=== PATIENT | female | born 1965 | race Caucasian/White ===

== ENCOUNTER 2016-04-30 06:46 | Day surgery (SDC) | payer MEDICAID ==
[~2016-04-30 06:46] MED LIST: RINGERS SOLUTION,LACTATED 1,000 ML IV PRN
--- OUTSIDE RECORDS SUMMARY | 2016-04-30 07:22 | XMS REPORT | Continuity of Care Document ---
:1965 Author Organization [facility] ([facility]) Address [place] [address] Phone [phone] Care Team Providers Name Role Phone Jarred Guardado Primary Care Provider [phone] Source Comments This disclosure is being made pursuant to the Care Everywhere program, applicable federal and state laws, and may not contain all informaitonavailable regarding this patient.[facility] ([facility]) Active Allergies and Adverse Reactions Allergen Noted Date Severity Reactions Comments Cephalexin 10/10/2009 OTHER Erythromycin 10/10/2009 OTHER Current Medications Prescription Sig. Disp. Refills Start Date End Date Status TRAMADOL HCL (TRAMADOL PO) Take by Active mouth. cyclobenzaprine (FLEXERIL) Take 10 mg by Active 10 mg tablet mouth 3 times daily as needed. clonazepam (KLONOPIN) 0.5 mg Take 0.5 mg by Active disintegrating tablet mouth 3 times daily. MEDROXYPROGESTERONE ACET inject Active (DEPO-PROVERA IM) intramuscularl y. CALCIUM CARBONATE/VITAMIN D3 Take by Active (CALCIUM + D PO) mouth. ibuprofen (MOTRIN) 200 mg Take 200 mg by Active tablet mouth every 6 hours as needed. traMADol (ULTRAM) 50 mg Take 1 Tab by 100 Tab 0 10/10/2009 Active tablet mouth every 6 hours. Indications: Pain Active Problems Not on file Social History Tobacco Use Types Packs/Day Years Used Date Never Assessed Last Filed Vital Signs Vital Sign Reading Time Taken Blood Pressure 121/68 10/10/2009 10:51 AM CDT Pulse 115 10/10/2009 10:51 AM CDT Temperature 36.5 C (97.7 F) 10/10/2009 10:51 AM CDT Respiratory Rate 16 09/12/2009 11:11 AM CDT Height 1.626 m (5' 4") 10/10/2009 10:51 AM CDT Weight 67.132 kg (148 lb) 10/10/2009 10:51 AM CDT Body Mass Index 25.39 10/10/2009 10:51 AM CDT Oxygen Saturation 100% 09/12/2009 11:11 AM CDT Plan of Care Health Maintenance Due Date Last Done Comments HCV Screening 1965 Hepatitis B Vaccine (1 of 3 - Primary Series) 1965 Tdap Vaccine 1974 Lipid Disorder Screening 1981 MMR Vaccine 1981 Td Vaccine 1981 Cervical Cancer Screening 1993 Mammogram 2003 12/01/1997 Colonoscopy 03/01/2013 Influenza Vaccine: Seasonal (#1) 09/10/2015 Results from Last 3 Months Not on file
[2016-04-30] MEDS ORDERED: RINGERS SOLUTION,LACTATED 1,000 ML IV ONE (07:49)
[2016-04-30 09:39] VITALS: BP 122/61
--- NOTE | 2016-04-30 17:39 | OR ---
Operative Report - Dictated Report Narrative: OPERATIVE REPORT DATE OF OPERATION: 04/30/2016 PREOPERATIVE DIAGNOSIS: No recent dedicated colon studies. Family history of colon cancer. POSTOPERATIVE DIAGNOSIS: Normal colonoscopy OPERATION: Colonoscopy SURGEON: Jayjay Vanegas MD ANESTHESIA: MAC Darrin Hebert CRNA INDICATIONS FOR PROCEDURE: The patient is a 51-year-old female referred by Dr. Anu Mckeon. The patient's grandmother had colon cancer at age 80. The patient had a colonoscopy in 2006 for irritable bowel syndrome which was reportedly normal. FINDINGS: Slightly capacious colon otherwise normal exam to the cecum NARRATIVE OF PROCEDURE: The patient was identified in the holding area, and prior to the administration of anesthetic, a multidisciplinary timeout was observed. With the patient in the left lateral position and after the administration of intravenous sedation, the perineum was inspected. There was no evidence of pilonidal disease or skin breakdown. The external appearance of the anus was normal. Sphincter tone was good. The flexible fiberoptic colonoscope was inserted into the rectum which was insufflated with air. The rectal mucosa and submucosal vascular pattern appeared normal, the prep was seen to be complete. The scope was advanced through the sigmoid colon, up the descending colon, and around the splenic flexure where the triangular haustral architecture of the transverse colon was seen. The scope was advanced across the transverse colon, around the hepatic flexure to the cecum, where the confluence of tenia and the ileocecal valve were identified. The mucosa at this level appeared normal. The scope was then slowly withdrawn in a circular fashion so that all aspects of colonic mucosa were inspected. The colon was somewhat capacious in character but relatively normal in course. The haustral architecture appeared well preserved throughout with no evidence of external compression. The mucosa and submucosal vascular pattern appeared normal, specifically there was no gross evidence to suggest colitis or inflammatory bowel disease and no AV malformations were seen. No diverticulosis was demonstrated. No polyps were encountered. The scope was gradually withdrawn to the level of the rectum. As much insufflated air as possible was removed. The scope was withdrawn from the patient and the procedure terminated. The patient tolerated the anesthetic and procedure well without complication and was transferred back to the ambulatory surgery area awake and in stable condition. The patient remained stable throughout a period of postoperative observation. She denied abdominal discomfort, was able to tolerate by mouth intake, and was up without assistance. I shared the operative findings with the patient and she was given copies of the photographs which appear in the medical record. She was discharged home with instructions not to engage in hazardous activity today , but may resume normal activity tomorrow, and advance diet as tolerated. She is to continue those medications as listed in the history and physical exam. RECOMMENDATION: Colon surveillance in 10 years depending upon findings and symptoms Reviewed and electronically signed
== END 2016-04-30 06:47 | disposition home or self-care (01) ==
LOC: AMB 06:46
PROVIDERS: ATTEND Surgery
PROC: 0DJD8ZZ Inspection of Lower Intestinal Tract, Via Natural or Artificial Opening Endoscopic (ICD-10-PCS; principal; 2016-04-30 08:10)
DX: Z12.11 Encounter for screening for malignant neoplasm of colon (principal); J45.909 Unspecified asthma, uncomplicated; F32.9 Major depressive disorder, single episode, unspecified; Z87.891 Personal history of nicotine dependence; Z80.0 Family history of malignant neoplasm of digestive organs

== ENCOUNTER 2016-06-03 10:50 | Emergency (ER) | payer MEDICAID ==
[2016-06-03] MEDS ORDERED: NORMAL SALINE 1,000 ML IV ONE (11:15)
[2016-06-03] MEDS ORDERED: LORazepam 2 MG/ML DISP.SYRIN IV ONE (11:16)
[2016-06-03] MEDS ORDERED: diphenhydrAMINE HCL 50 MG/ML VIAL IV ONE (11:18)
--- OUTSIDE RECORDS SUMMARY | 2016-06-03 11:22 | XMS REPORT | Continuity of Care Document ---
:1965 Author Organization [facility] ([facility]) Address [place] [address] Phone [phone] Care Team Providers Name Role Phone Jarred Guardado Primary Care Provider [phone] Source Comments This disclosure is being made pursuant to the Care Everywhere program, applicable federal and state laws, and may not contain all informaitonavailable regarding this patient.[facility] ([facility]) Active Allergies and Adverse Reactions Allergen [...]
[2016-06-03] MEDS ORDERED: LORazepam 2 MG/ML DISP.SYRIN ONE (11:31)
[2016-06-03 11:51] LABS: ALT 32 U/L (19-67); AST 25 U/L (0-48); Albumin * 4.1 gm/dl (3.4-5.0); Alkaline Phosphatase * 126 U/L (50-170); BUN/Creatinine Ratio 16.3 (9.0-21.6); Bilirubin, Total 0.3 mg/dL (0.0-1.1); Blood Urea Nitrogen 13 mg/dL (3-23); CK Total * 176 U/L (0-259); Ca. Corrected For Albumin 8.3 mg/dL (8.4-10.2); Calcium * 8.7 mg/dL (7.9-10.9); Carbon Dioxide 26.9 mmol/L (24-32.6); Chloride 102 mmol/L (97-106); Glucose * 145 mg/dL (70-110); Potassium 3.9 mmol/L (3.4-4.6); Salicylate 4.2 mg/dL (2.8-20.0); Sodium 139 mmol/L (132-142); Total Protein 7.1 gm/dL (6.2-8.2); Troponin I Less than 0.017 ng/ml (0.00-0.10)
[2016-06-03 12:02] LABS: Hematocrit 38.4 % (37.0-47.0); Hemoglobin 12.8 gm/dL (12.5-16.0); Mean Cell Volume 90.1 fl (78-100); Mean Corpuscular Hgb Conc 33.3 g/dl (32-36); Mean Platelet Volume 9.6 fl (6.0-9.5); Neutrophil # 2.7 K/mm3 (1.3-6.0); Neutrophil % 38.9 % (42-75.0); Platelet Count 387 K/mm3 (150-450); Red Blood Count 4.26 M/mm3 (4.2-5.4); Red Cell Distribution Width 13.3 % (11.5-14.0)
[2016-06-03 12:35] LABS: Urine Bilirubin Negative (NEGATIVE); Urine Blood Negative /ul (NEGATIVE); Urine Ketone Negative (NEGATIVE); Urine Nitrite Negative (NEGATIVE); Urine Protein Negative (NEGATIVE); Urine Urobilinogen Normal (NORMAL)
[2016-06-03 12:53] LABS: Urine Appearance Clear; Urine Bacteria None Seen; Urine Color Yellow; Urine RBC None Seen /hpf (0-5); Urine WBC None Seen /hpf (0-5)
[2016-06-03 13:02] LABS: Cocaine Ur Negative (NEGATIVE); Urine Barbiturate Negative (NEGATIVE); Urine Benzodiazepines Negative (NEGATIVE); Urine Opiates Negative (NEGATIVE); Urine PCP Negative (NEGATIVE)
[2016-06-03 13:04] LABS: Urine THC Positive (NEGATIVE)
--- NOTE | 2016-06-03 14:53 | ERNOTE ---
Medical Problem HPI - Narrative Date of Service: 06/03/16 - General Chief Complaint: General Assessment Time Seen by Provider: 06/03/16 11:11 Source: patient Exam Limitations: no limitations - Immun/Allergies/Home Medications Immunizations: IMMUNIZATION HX Immunizations Up to Date Yes Immunizations Comment shingles History of Influenza Vaccine Yes Hx Pneumococcal Vaccination No Allergies/Adverse Reactions: Allergies azithromycin Adverse Reaction (Intermediate, Verified 06/03/16 10:59) Other not true allergy, patient states low tolerance cephalexin monohydrate [From Keflex] Adverse Reaction (Intermediate, Verified 10:59) Other yeast infection erythromycin base Adverse Reaction (Intermediate, Verified 06/03/16 10:59) Other upset stomach, nausea gabapentin Adverse Reaction (Intermediate, Verified 06/03/16 10:59) Other stomach cramps naproxen Adverse Reaction (Intermediate, Verified 06/03/16 10:59) Other upset stomach Home Medications: HOME MEDICATIONS clonazePAM [Klonopin] 0.5 mg PO HS 07/20/15 [Last Taken Unknown] Diflunisal 500 mg PO BID 04/14/16 [Last Taken Unknown] Omeprazole 20 mg PO DAILY 04/14/16 [Last Taken Unknown] traMADol HCL [Ultram] 100 mg PO QID PRN 04/14/16 [Last Taken Unknown] Desvenlafaxine Succinate [Pristiq] 50 mg PO DAILY 06/03/16 [Last Taken Unknown] Nortriptyline HCl [Pamelor] 25 mg PO 06/03/16 [Last Taken Unknown] Proventil 5 MG/ML Solution 06/03/16 [Last Taken Unknown] Sulfamethoxazole/Trimethoprim [Bactrim Ds] 1 tab PO BID 06/03/16 [Last Taken Unknown] traMADol HCL [Ultram] 100 mg PO QID PRN 06/03/16 [Last Taken Unknown] - History of Present History Narrative: patient presents to the ED for shaking. 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 She relates she started shaking all over and felt tremulous. She relates she has never had this before. Nothing make sit better or worse. She relates a chronic RIVERA, but thi sis no different from prior. She also relates dizziness that is long-standing. No other acute Sx. No CP or SOB. No fever or vomiting. No acute focal N/T/W. She just had her nortript. increased last week at an office visit. She initially denied drug but later related she had smoked some marijuana before this began. She denies any other Sx. She appears to be voluntarily shaking all her extremities at this time. No seizure activity. Timing: constant Modifying Factors - (Improves): Present: other - nothing Modifying Factors - (Worsens): Present: other - nothing Review of Systems - Review of Systems Constitutional: Absent: fever EYE: Absent: vision changes ENT: Present: See HPI Respiratory: Absent: shortness of breath Cardiology: Absent: chest pain Gastrointestinal/Abdominal: Absent: abdominal pain Genitourinary: Absent: dysuria Neurological: Absent: weakness All Other Systems: All systems neg except as marked - Patient's Past Medical History Patient History - Medical: GERD, Headache, Osteoarthritis, Other Patient History - Cardiac/Respiratory: Asthma Patient History - Cancer: No Hx of Cancer Patient History - Surgical Procedures: Appendectomy, Colonoscopy, EGD, Tubal Ligation, Other Patient History - Other: None LMP (females 10-50): Menopausal - Family History Sister Family History - Medical: Migraines Family History - Cardiac/Respiratory: Asthma Family History - Cancer: No pertinent family hx Father Family History - Medical: Diabetes Type 2, Rheumatoid Arthritis Family History - Cardiac/Respiratory: No pertinent hx Family History - Cancer: No pertinent family hx Mother Family History - Medical: Anemia, Alzheimer's Disease, Osteoporosis Family History - Cardiac/Respiratory: Coronary Heart Disease, Hypertension, Hyperlipidemia, Other Family History - Cancer: Other - Social History Living Situations: home Abuse History: No History of abuse Psych History: Hx of Depression Alcohol Use: none Drug Use: other - Immunizations Immunizations Up to Date: Yes Hx Pneumococcal Vaccination: No History of Influenza Vaccine: Yes Physical Exam - Physical Exam General Appearance: Present: alert, other - Shaking extremities bilaterally. This appears to reduce when she voluntarily follows commands using her extremities. Eye Exam: Normal inspection: bilateral, PERRL: bilateral Ears, Nose, Throat: Present: normal ENT inspection Neck: Present: normal inspection Respiratory: Present: no respiratory distress, normal breath sounds, lungs clear Cardiovascular/Chest: Present: regular rate, rhythm, normal peripheral pulses Gastrointestinal/Abdominal: Present: normal bowel sounds, nontender, nondistended. Absent: tenderness Extremity Exam: Present: normal inspection Neurological Exam: Present: alert, oriented, normal mood/affect, no motor/ sensory deficits, other - NIH-0 Skin Exam: Absent: skin rash ED Progress - Results and Orders Patient's Lab Results:: I have reviewed the patient's lab results. - Vital Signs Patient's Vital Signs:: I have reviewed the patient's vital signs. Vital Signs: Vital Signs 06/03/16 06/03/16 06/03/16 10:53 11:05 11:34 Temperature 37.4 C Pulse Rate 119 H 117 H 121 H Respiratory 24 H 21 H 25 H Rate Blood Pressure 162/78 126/82 O2 Sat by Pulse 97 97 96 Oximetry 06/03/16 06/03/16 06/03/16 11:51 12:05 12:25 Temperature Pulse Rate 100 89 91 Respiratory 19 17 Rate Blood Pressure 115/58 114/7 122/59 O2 Sat by Pulse 95 97 97 Oximetry 06/03/16 06/03/16 06/03/16 12:40 12:50 13:05 Temperature Pulse Rate 89 83 83 Respiratory 22 H 15 15 Rate Blood Pressure 109/53 109/51 107/51 O2 Sat by Pulse 99 100 99 Oximetry 06/03/16 06/03/16 06/03/16 13:21 13:36 13:51 Temperature Pulse Rate 78 80 76 Respiratory 15 15 16 Rate Blood Pressure 109/61 101/65 110/56 O2 Sat by Pulse 99 98 99 Oximetry - EKG EKG read: Interp. by me EKG Comments: Sinus tach. rate 119. Non-specific ST/T wave changes, no clear STEMI - CT/Ultrasound CT/Ultrasound Narrative: CT head report reviewed. Negative. - Progress/Reassessment Chief Complaint: General Assessment Progress Note-Subjective: 06/03/16 14:49 All Sx resolved after ativan. She was resting comfortably. Nothing would suggest seizure. I doubt Serotonin syndrome at this tiome. Her tachycardia resolved and all Sx resolved. I offered her admission but she declines this and wishes to go home. She understands risks and benefits. Lactate elevated likely from the muscle shaking which has resolved. No other clear etiology. No other clear acute life threats noted. She declines hospital observation. Departure - Departure Clinical Impression: Shaking Disposition: Home self-care Condition: Stable Additional Instructions: Rest. Fluids. Follow-up with your doctor tomorrow by phone with a condition report and to schedule an appointment. Return if you change your mind about being admitted for observation, develop return of symptoms or if your condition worsens or changes in any way. Referrals: John Hernandez MD [Primary Care Provider] -
[2016-06-03 15:34] VITALS: BP 109/55
== END 2016-06-03 15:15 | disposition home or self-care (01) ==
LOC: ER 10:50
DX: R25.1 Tremor, unspecified (principal)
CPT/HCPCS: 36415; 70450; 80053; 80307; 81001; 82550; 83605; 84484; 85025; 93005; 96374; 99284; G0480; G0481

== ENCOUNTER 2016-07-25 12:03 | Emergency (ER) | payer MEDICAID ==
[2016-07-25 12:13] VITALS: BP 136/75
[2016-07-25] MEDS ORDERED: diphenhydrAMINE HCL 50 MG/ML VIAL IM ONE (12:24)
[2016-07-25] MEDS ORDERED: METHYLPREDNISOLONE ACETATE 80 MG/ML VIAL IM ONE (12:24)
--- NOTE | 2016-07-25 12:31 | ERNOTE ---
Integumentary HPI - Narrative Date of Service: 07/25/16 - General Time Seen by Provider: 07/25/16 12:14 Source: patient Exam Limitations: no limitations - Immun/Allergies/Home Medications Immunizations: IMMUNIZATION HX Immunizations Up to Date Yes History of Influenza Vaccine Yes Hx Pneumococcal Vaccination No Allergies/Adverse Reactions: Allergies Allergy/AdvReac Type Severity Reaction Status Date / Time azithromycin AdvReac Intermediate Other Verified 07/25/16 12:13 cephalexin monohydrate AdvReac Intermediate Other Verified 07/25/16 12:13 [From Keflex] erythromycin base AdvReac Intermediate Other Verified 07/25/16 12:13 gabapentin AdvReac Intermediate Other Verified 07/25/16 12:13 naproxen AdvReac Intermediate Other Verified 07/25/16 12:13 Home Medications: HOME MEDICATIONS clonazePAM [Klonopin] 0.5 mg PO HS 07/20/15 [Last Taken Unknown] Omeprazole 20 mg PO DAILY 04/14/16 [Last Taken Unknown] Desvenlafaxine Succinate [Pristiq] 50 mg PO DAILY 06/03/16 [Last Taken Unknown] Proventil 5 MG/ML Solution 06/03/16 [Last Taken Unknown] Tegretol 07/16/16 [Last Taken Unknown] predniSONE [Prednisone] 3 tab PO DAILY #9 tab 07/25/16 [Last Taken Unknown] - History of Present Illness Narrative: Pt. comes in with c/o rash for 24 hours after she was playing with her grandchildren in the grass two days ago. Pt. states that she has been taking benadryl without relief. Pt. states that she also started two new medications a week ago. Pt. denies any alleviating factors but states that it worsened when she went outside in the sun yesterday. Pt. denies any SOB or CP. Review of Systems - Review of Systems Constitutional: Present: no symptoms reported. Absent: recent illness, fever, chills, weakness, fatigue, malaise EYE: Present: no symptoms reported ENT: Present: no symptoms reported. Absent: throat swelling Respiratory: Present: no symptoms reported. Absent: shortness of breath, cough , wheezing Cardiology: Present: no symptoms reported. Absent: chest pain, palpitations, edema Gastrointestinal/Abdominal: Present: no symptoms reported Genitourinary: Present: no symptoms reported Musculoskeletal: Present: no symptoms reported. Absent: back pain, joint pain Skin: Present: rash. Absent: dryness, change in color, change in hair/nails Neurological: Present: no symptoms reported. Absent: headache, dizziness/light- headedness, numbness, tingling All Other Systems: All systems neg except as marked - Patient's Past Medical History Patient History - Medical: GERD, Headache, Osteoarthritis Patient History - Cardiac/Respiratory: Asthma Patient History - Cancer: No Hx of Cancer Patient History - Surgical Procedures: Appendectomy, Colonoscopy, EGD, Tubal Ligation, Other Patient History - Other: None LMP (females 10-50): Menopausal - Family History Sister Family History - Medical: Migraines Family History - Cardiac/Respiratory: Asthma Family History - Cancer: No pertinent family hx Father Family History - Medical: Diabetes Type 2, Rheumatoid Arthritis Family History - Cardiac/Respiratory: No pertinent hx Family History - Cancer: No pertinent family hx Mother Family History - Medical: Anemia, Alzheimer's Disease, Osteoporosis Family History - Cardiac/Respiratory: Coronary Heart Disease, Hypertension, Hyperlipidemia, Other Family History - Cancer: Other - Social History Living Situations: significant other Abuse History: No History of abuse Psych History: Hx of Depression Smoking Status: Former smoker Alcohol Use: none Drug Use: other - Immunizations Immunizations Up to Date: Yes Hx Pneumococcal Vaccination: No History of Influenza Vaccine: Yes Physical Exam - Physical Exam General Appearance: Present: wd/wn, alert, no apparent distress Eye Exam: Normal inspection: bilateral, PERRL: bilateral, EOMI: bilateral Ears, Nose, Throat: Present: normal ENT inspection, normal pharynx Respiratory: Present: no respiratory distress, normal breath sounds, no accessory muscle use, chest nontender, lungs clear Cardiovascular/Chest: Present: regular rate, rhythm, no murmur, normal peripheral pulses Neurological Exam: Present: alert, oriented, normal mood/affect, no motor/ sensory deficits Skin Exam: Present: skin rash - diffuse maculopapular rash ED Progress - Vital Signs Patient's Vital Signs:: I have reviewed the patient's vital signs. Vital Signs: Vital Signs 07/25/16 12:08 Temperature 37.0 C Pulse Rate 100 Respiratory 16 Rate Blood Pressure 136/75 O2 Sat by Pulse 98 Oximetry - Progress/Reassessment Chief Complaint: Rash Progress:: Improved Departure Clinical Impression: Allergic dermatitis - Departure Disposition: Home self-care Condition: Good Instructions: Pruritus Additional Instructions: Please follow up with primary provider as needed. Please take Benadryl 25 mg every 6 hours until rash is resolved. Referrals: John Hernandez MD [Primary Care Provider] - Prescriptions: predniSONE [Prednisone] 3 tab PO DAILY #9 tab
[2016-07-25] MEDS ORDERED: METHYLPREDNISOLONE ACETATE 80 MG/ML VIAL ONE (12:32)
[2016-07-25] MEDS ORDERED: diphenhydrAMINE HCL 50 MG/ML VIAL ONE (12:32)
--- OUTSIDE RECORDS SUMMARY | 2016-07-25 13:08 | XMS REPORT | Continuity of Care Document ---
:1965 Author Organization [facility] ([facility]) Address [address] [place] [address] Phone [phone] Care Team Providers Name Role Phone Jarred Guardado Primary Care Provider [phone] Source Comments This disclosure is being made pursuant to the Care Everywhere program, applicable federal and state laws, and may not contain all informaitonavailable regarding this patient.[facility] ([facility]) Active Allergies and Adverse Reactions Allergen [...]
== END 2016-07-25 12:53 | disposition home or self-care (01) ==
LOC: ER 12:03
DX: L23.9 Allergic contact dermatitis, unspecified cause (principal)

== ENCOUNTER 2016-10-09 06:43 | Day surgery (SDC) | payer MEDICAID ==
[~2016-10-09 06:43] MED LIST changes: +RINGER'S SOLUTION,LACTATED 1,000 ML IV PRN; -RINGERS SOLUTION,LACTATED 1,000 ML IV PRN; +ceFAZolin SODIUM 1 GM VIAL IV PRN
[2016-10-09] MEDS ORDERED: RINGER'S SOLUTION,LACTATED 1,000 ML IV ONE (07:19)
--- NOTE | 2016-10-09 07:48 | PN ---
Progess Note - Interim Narrative: 10/09/16 07:40 Patient evaluated this am. She has had several months of worsening R hand pain and numbness. 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 On exam, she has diminished but intact sensation to light touch in the ulnar nerve distribution. She has a positive Tinel's over the elbow and a positive Phalen's with prolonged elbow flexion. An EMG/NCV study was done in July, which demonstrated moderated cubital tunnel syndrome. Her symptoms have continued to worsen despite NSAIDs, passage of time, a trial of splinting, and activity modification. After discussion of the risks and benefits of cubital tunnel release including, but not limited to, infection, bleeding, nerve injury, persistent symptoms, wound complications, and risks with anesthesia, she wishes to proceed with R cubital tunnel release. Informed consent was obtained in clinic prior to surgery. All the patients questions were answered. Joaquin Kimball MD
[2016-10-09] MEDS ORDERED: BUPIVACAINE HCL 50 ML VIAL IJ ONE ×2 (08:10)
--- NOTE | 2016-10-09 09:05 | OR ---
Operative Report - Dictated Report Narrative: Date: 10/09/2016 Physician: Joaquin Kimball M.D. Silk Screener: Wan Alexandre PA-C Preoperative diagnosis: Right Cubital tunnel syndrome Postoperative diagnosis: Right Cubital tunnel syndrome Procedure: Right ulnar nerve decompression at the cubital tunnel Anesthesia: General Plus local Complications: None Estimated blood loss: Minimal Tourniquet time: 31 Minutes at 250 mmHg Specimens: None Retained implants: None Drains: None Indications: Judith Is a 51 year-old female who has been followed in my clinic with complaints of cubital tunnel syndrome. Physical exam as well as diagnostic testing showed compression of the ulnar nerve compatible with cubital tunnel syndrome. Conservative measures have failed including but not limited to activity modification, medications, and splinting. The risks, benefits, and alternatives were discussed in clinic. The risks being bleeding, infection, nerve, tendon, blood vessel injury, persistent pain, wound competitions, weakness, palm pain, need for additional procedures, and persistent symptoms. Consent was obtained in the clinic. Procedure: After marking the correct extremity in the preoperative holding area, a timeout was performed in the operating room. IV antibiotics consisting of 1 g of Ancef was administered prior to the procedure. A well-padded tourniquet was applied to the operative upper arm. The arm was exsanguinated and the tourniquet was inflated to 250 mmHg. 0.5% Marcaine without epinephrine was infused into the projected incision site over the medial elbow. Using loupe magnification, a longitudinal incision centered over the cubital tunnel was made approximately 7 centimeters in length. Blunt dissection was carried down to the subcutaneous tissues using bipolar cautery for hemostasis. Care was taken to protect the identified underlying cutaneous nerves. The ulnar nerve was identified as it passed through the medial intermuscular septum along the distal triceps. A release of the canal in this area as the ulnar nerve passed anterior to posterior was performed in order to decompress the nerve at this site. The nerve was dissected releasing the overlying soft tissues while maintaining the vascularity of the nerve down to the area of the medial epicondyles and Baum' s ligament. The nerve was completely decompressed as it passed posterior to the medial condyle and was followed into the flexor carpi ulnaris. The deep fascia of the flexor carpi ulnaris muscle was released in order to decompress the nerve at this site. The first branch of the ulnar nerve was protected as well as any identified recurrent branches. The elbow was placed through range of motion and it was noted that the nerve was not unstable nor did it appear to be under tension as it passed behind the medial epicondyle. For this reason it was not felt that a transposition was necessary. Once it was felt that we had completely released the compressive structures on the ulnar nerve, the wounds were thoroughly irrigated and the tourniquet was deflated. Hemostasis was obtained using pressure and bipolar cautery. Once adequate hemostasis was in place local anesthetic was placed in the skin edges, and the subcutaneous tissue was closed with interrupted Vicryl. The skin was closed with interrupted 4-0 nylon and sterile dressings consisting of Xeroform, 4 x 4, soft roll, and a forearm Boni wrap was applied. All sponge, needle, blade, and instrument counts were correct prior to closing the wounds. The patient was awoken and transferred to the postanesthesia care unit in stable condition.
[2016-10-09] MEDS ORDERED: RINGER'S SOLUTION,LACTATED 1,000 ML IV PRN (09:19)
[2016-10-09] MEDS ORDERED: HYDROcodone/ACETAMINOPHEN 1 EACH TABLET PO PRN (09:22)
[2016-10-09 10:05] VITALS: BP 124/60
== END 2016-10-09 06:44 | disposition home or self-care (01) ==
LOC: AMB 06:43
PROVIDERS: ATTEND Orthopaedic Surgery
PROC: 01N40ZZ Release Ulnar Nerve, Open Approach (ICD-10-PCS; principal; 2016-10-09 08:00)
DX: G56.21 Lesion of ulnar nerve, right upper limb (principal); J45.20 Mild intermittent asthma, uncomplicated; K21.9 Gastro-esophageal reflux disease without esophagitis; M19.90 Unspecified osteoarthritis, unspecified site; F32.9 Major depressive disorder, single episode, unspecified; Z87.891 Personal history of nicotine dependence; Z68.23 Body mass index [BMI] 23.0-23.9, adult

== ENCOUNTER 2017-02-20 09:49 | Observation (INO) | payer MEDICAID ==
[2017-02-20] MEDS ORDERED: NORMAL SALINE 1,000 ML IV ONE (09:55)
[2017-02-20 10:16] LABS: Hematocrit 44.9 % (37.0-47.0); Hemoglobin 15.2 gm/dL (12.5-16.0); Mean Cell Volume 90.3 fl (78-100); Mean Corpuscular Hemoglobin 30.6 pg (27-31); Mean Corpuscular Hgb Conc 33.9 g/dl (32-36); Mean Platelet Volume 9.3 fl (6.0-9.5); Neutrophil # 3.3 K/mm3 (1.3-6.0); Platelet Count 401 K/mm3 (150-450); Red Blood Count 4.97 M/mm3 (4.2-5.4); Red Cell Distribution Width 12.7 % (11.5-14.0); White Blood Count 6.3 K/mm3 (4.0-10.5)
[2017-02-20 10:31] LABS: ALT 38 U/L (19-67); AST 36 U/L (0-48); Albumin * 4.4 gm/dl (3.4-5.0); Alkaline Phosphatase * 124 U/L (50-170); Anion Gap 13.8 mmol/L (6.8-13.8); BUN/Creatinine Ratio 18.9 (9.0-21.6); Bilirubin, Total 0.4 mg/dL (0.0-1.1); Blood Urea Nitrogen 18 mg/dL (3-23); Ca. Corrected For Albumin 8.6 mg/dL (8.4-10.2); Calcium * 9.2 mg/dL (7.9-10.9); Carbon Dioxide 28.9 mmol/L (24-32.6); Chloride 102 mmol/L (97-106); Glucose * 134 mg/dL (70-110); Potassium 3.7 mmol/L (3.4-4.6); Salicylate 3.2 mg/dL (2.8-20.0); Sodium 141 mmol/L (132-142); Total Protein 7.8 gm/dL (6.2-8.2)
[2017-02-20 10:43] LABS: Urine Bilirubin Negative (NEGATIVE); Urine Blood Negative /ul (NEGATIVE); Urine Ketone Negative (NEGATIVE); Urine Nitrite Negative (NEGATIVE); Urine Protein Negative (NEGATIVE); Urine Urobilinogen Normal (NORMAL)
[2017-02-20 10:54] LABS: Urine Appearance Clear; Urine Bacteria 2+; Urine Color Pale Yellow; Urine RBC None Seen /hpf (0-5)
[2017-02-20 10:58] LABS: Cocaine Ur Negative (NEGATIVE); Urine Barbiturate Negative (NEGATIVE); Urine Benzodiazepines Negative (NEGATIVE); Urine Opiates Negative (NEGATIVE); Urine PCP Negative (NEGATIVE)
[2017-02-20 11:00] LABS: Urine THC Positive (NEGATIVE)
--- NOTE | 2017-02-20 11:32 | ERNOTE ---
Psychological HPI - Date Date of Service: 02/20/17 - General Chief Complaint: Drug Overdose Source: Reports: patient, EMS notes reviewed - Immun/Allergies/Home Medications Allergies/Adverse Reactions: Allergies cephalexin monohydrate [From Keflex] Adverse Reaction (Mild, Verified 02/20/17 09:57) YEAST INFECTION divalproex sodium [From Depakote] Adverse Reaction (Mild, Verified 02/20/17 09: 57) CRYING, RAMIREZ erythromycin base Adverse Reaction (Mild, Verified 02/20/17 09:57) UPSET STOMACH upset stomach, nausea gabapentin Adverse Reaction (Mild, Verified 02/20/17 09:57) NAUSEA, STOMACH CRAMPS stomach cramps nabumetone Adverse Reaction (Mild, Verified 02/20/17 09:57) Vomiting naproxen Adverse Reaction (Mild, Verified 02/20/17 09:57) UPSET STOMACH nortriptyline Adverse Reaction (Mild, Verified 02/20/17 09:57) CRYING, RAMIREZ tramadol [From Ultram] Adverse Reaction (Mild, Verified 02/20/17 09:57) TREMORS azithromycin Adverse Reaction (Unknown, Verified 02/20/17 09:57) PT STATES LOW TOLERANCE loratadine Adverse Reaction (Unknown, Verified 02/20/17 09:57) NOT HELPFUL olopatadine [From Patanase] Adverse Reaction (Unknown, Verified 02/20/17 09:57) NOT HELPFUL Home Medications: HOME MEDICATIONS Omeprazole 20 mg PO DAILY PRN 04/14/16 [Last Taken Unknown] Albuterol Sulfate [Proventil Hfa] 2 puff IH Q4H 08/22/16 [Last Taken Unknown] Desvenlafaxine Succinate [Pristiq] 100 mg PO DAILY 08/22/16 [Last Taken Unknown] clonazePAM [Klonopin] 1 mg PO HS 08/22/16 [Last Taken Unknown] Bupropion HCl [Wellbutrin Sr] 150 mg PO BID 10/07/16 [Last Taken Unknown] - History of Present Illness Narrative: patient has been depressed lately and this am took approximately 20 clonazepam in an attempt to end life, patient reaffirms intent Time Seen by Provider: 02/20/17 09:49 Arrived by: Reports: ambulance Onset/duration: Reports: sudden onset Intent: Reports: suicide, wants to escape Mechanism: Reports: overdose Situational Problems: Reports: significant other Associated Symptoms: Reports: depressed, frustrated Prior Treament: Reports: similar symptoms before - patient relates prior attempts Review of Systems - Narrative Narrative: patient has been very depressed for several weeks - Review of Systems Constitutional: Present: See HPI, weakness, fatigue, malaise EYE: Present: no symptoms reported ENT: Present: no symptoms reported Respiratory: Present: no symptoms reported Cardiology: Present: no symptoms reported Gastrointestinal/Abdominal: Present: no symptoms reported Genitourinary: Present: no symptoms reported Musculoskeletal: Present: no symptoms reported Skin: Present: no symptoms reported Neurological: Present: headache, dizziness/light-headedness Endocrine: Present: no symptoms reported Hematologic/Lymphatic: Present: no symptoms reported Psych: Present: no symptoms reported All Other Systems: All systems neg except as marked - Narrative Narrative: patient c/o chronic depression - Patient's Past Medical History Patient History - Medical: GERD, Headache, Osteoarthritis Patient History - Cardiac/Respiratory: Asthma Patient History - Cancer: No Hx of Cancer Patient History - Surgical Procedures: Appendectomy, Colonoscopy, EGD, Tubal Ligation, Other Patient History - Other: None LMP (females 10-50): other - Family History Sister Family History - Medical: Migraines Family History - Cardiac/Respiratory: Asthma Family History - Cancer: No pertinent family hx Father Family History - Medical: Diabetes Type 2, Rheumatoid Arthritis Family History - Cardiac/Respiratory: No pertinent hx Family History - Cancer: No pertinent family hx Mother Family History - Medical: Anemia, Alzheimer's Disease, Osteoporosis Family History - Cardiac/Respiratory: Coronary Heart Disease, Hypertension, Hyperlipidemia, Other Family History - Cancer: Other - Social History Living Situations: significant other Abuse History: No History of abuse Psych History: Hx of Anxiety, Hx of Depression Smoking Status: Former smoker Have you smoked in the past 12 months: No Do you dip or chew tobacco: No Alcohol Use: none Drug Use: marijuana - Immunizations Immunizations Up to Date: Yes Hx Pneumococcal Vaccination: Yes History of Influenza Vaccine: Yes Psychological Exam - Exam Narrative: patient tearful and wanting to General Appearance: Present: moderate distress, crying Head Exam: Present: normal inspection, no evidence of injury Neurological: Present: depressed affect Thoughts/Hallucinations: Present: normal thought pattern Behavior/Eye Contact/Speech: Present: cooperative, good eye contact, normal speech ENT Exam normal except (see below): Yes Eye Exam: Normal inspection: bilateral, PERRL: bilateral, EOMI: bilateral Ears, Nose, Throat: Present: normal ENT inspection Neck: Present: normal inspection, nontender Respiratory: Present: no respiratory distress, normal breath sounds, no accessory muscle use, chest nontender, lungs clear Cardiovascular/Chest: Present: regular rate, rhythm, no murmur, normal peripheral pulses Peripheral Pulses: Carotid (R): Normal, Carotid (L): Normal, Radial (R): Normal , Radial (L): Normal, Brachial (R): Normal, Brachial (L): Normal, Femoral (R): Normal, Femoral (L): Normal, Posterior tib (R): Normal Gastrointestinal/Abdominal: Present: normal bowel sounds, nontender, nondistended, soft, no organomegaly Back Exam: Present: normal inspection, normal range of motion, no CVA tenderness , no vertebral tenderness Extremity Exam: Present: normal inspection, non-tender, normal range of motion, no edema Deep Tendon Reflexes: Bicep (R): Normal, Bicep (L): Normal, Tricep (R): Normal, Tricep (L): Normal, Knee (R): Normal, Knee (L): Normal, Ankle (R): Normal, Ankle (L): Normal Skin Exam: Present: normal color, warm/dry, no cyanosis Lymphatic Exam: Present: no adenopathy ED Progress - Results and Orders Patient's Lab Results:: I have reviewed the patient's lab results. - Vital Signs Patient's Vital Signs:: I have reviewed the patient's vital signs. Vital Signs: Vital Signs 02/20/17 02/20/17 02/20/17 09:50 10:20 10:33 Temperature 36.3 C L Pulse Rate 102 H 95 96 Respiratory 11 L 12 12 Rate Blood Pressure 147/93 130/84 126/78 O2 Sat by Pulse 98 96 99 Oximetry 02/20/17 02/20/17 02/20/17 10:47 11:05 11:22 Temperature Pulse Rate 88 90 90 Respiratory 16 16 16 Rate Blood Pressure 130/80 125/75 128/72 O2 Sat by Pulse 97 98 97 Oximetry - EKG EKG: NSR EKG read: Interp. by me - Progress/Reassessment Chief Complaint: Drug Overdose Progress:: Unchanged - Transfer of Care Expected Disposition: Admit Time Seen by Provider: 02/20/17 09:49 Plan - Plan Plan: case discussed with dr nice, to be admitted Departure Clinical Impression: Overdose, Suicide attempt by other psychotropic drug overdose - Departure Disposition: [facility] Condition: Fair
[2017-02-20] MEDS: NORMAL SALINE 1,000 ML IV PRN ×2 (12:00→20:26)
[2017-02-20] MEDS ORDERED: ACETAMINOPHEN 325 MG TABLET PO PRN (19:57)
--- NOTE | 2017-02-20 23:28 | HP ---
Chief Complaint - Chief Complaint Date of Service: 02/20/17 Time of Service: 16:45 Chief Complaint: Suicidal, clonazepam overdose History of Present Illness: Judith is a 52 yo female who reportedly took 20 tablets of clonazepam in an attempt to commit suicide. She is stressed about home life and does not want to live. She denies prior suicide attempt. She does agree to get help. Denies taking any other medications. - Patient's Past Medical History Patient History - Medical: GERD, Headache, Osteoarthritis Patient History - Cardiac/Respiratory: Asthma Patient History - Cancer: No Hx of Cancer Patient History - Surgical Procedures: Appendectomy, Colonoscopy, EGD, Tubal Ligation, Other Patient History - Other: None LMP (females 10-50): other - Family History Sister Family History - Medical: Migraines Family History - Cardiac/Respiratory: Asthma Family History - Cancer: No pertinent family hx Father Family History - Medical: Diabetes Type 2, Rheumatoid Arthritis Family History - Cardiac/Respiratory: No pertinent hx Family History - Cancer: No pertinent family hx Mother Family History - Medical: Anemia, Alzheimer's Disease, Osteoporosis Family History - Cardiac/Respiratory: Coronary Heart Disease, Hypertension, Hyperlipidemia, Other Family History - Cancer: Other - Social History Living Situations: home Abuse History: No History of abuse Psych History: Hx of Anxiety, Hx of Depression Smoking Status: Former smoker Have you smoked in the past 12 months: No Do you dip or chew tobacco: No Patient requests Smoking Cessation Consult: No Initiate information on Smoking Cessation: No Alcohol Use: none Drug Use: marijuana - Immunizations Immunizations Up to Date: Yes Hx Pneumococcal Vaccination: Yes History of Influenza Vaccine: Yes Review Of Systems (GEN) - Review of Systems Generalized/Overall Review: Absent: Weakness, Chills EENTM: Present: No Symptoms Reported Respiratory: Absent: Cough, Shortness of Breath Cardiac: Absent: Chest Pain, Edema Abdominal: Absent: Nausea, Vomiting Genitourinary: Present: No Symptoms Reported Musculoskeletal: Present: No Symptoms Reported Neurological: Present: No Symptoms Reported Skin: Present: No Symptoms Reported Endocrine: Present: No Symptoms Reported Allergies/Adverse Reactions: Allergies Allergy/AdvReac Type Severity Reaction Status Date / Time cephalexin monohydrate AdvReac Mild YEAST Verified 02/20/17 13:12 [From Keflex] INFECTION divalproex sodium AdvReac Mild CRYING, Verified 02/20/17 13:12 [From Depakote] RAMIREZ erythromycin base AdvReac Mild UPSET Verified 02/20/17 13:12 STOMACH gabapentin AdvReac Mild NAUSEA, Verified 02/20/17 13:12 STOMACH CRAMPS nabumetone AdvReac Mild Vomiting Verified 02/20/17 13:12 naproxen AdvReac Mild UPSET Verified 02/20/17 13:12 STOMACH nortriptyline AdvReac Mild CRYING, Verified 02/20/17 13:12 RAMIREZ tramadol [From Ultram] AdvReac Mild TREMORS Verified 02/20/17 13:12 azithromycin AdvReac Unknown PT STATES Verified 02/20/17 13:12 LOW TOLERANCE loratadine AdvReac Unknown NOT HELPFUL Verified 02/20/17 13:12 olopatadine [From Patanase] AdvReac Unknown NOT HELPFUL Verified 02/20/17 13:12 Home Medications: HOME MEDICATIONS Omeprazole 20 mg PO DAILY PRN 04/14/16 [Last Taken Unknown] Albuterol Sulfate [Proventil Hfa] 2 puff IH Q4H 08/22/16 [Last Taken Unknown] Desvenlafaxine Succinate [Pristiq] 100 mg PO DAILY 08/22/16 [Last Taken Unknown] clonazePAM [Klonopin] 2 mg PO HS 08/22/16 [Last Taken Unknown] Bupropion HCl [Wellbutrin Sr] 150 mg PO BID 10/07/16 [Last Taken Unknown] Cetirizine HCl [Zyrtec] 10 mg PO DAILY 02/20/17 [Last Taken Unknown] Albuterol Sulfate [Albuterol Sulfate 2.5 MG/3 ML] 2.5 mg IH Q4H PRN #90 vial.neb 03/05/17 [Last Taken Unknown] Albuterol Sulfate [Proair Hfa] 2 puff IH Q4H PRN #1 inhaler 03/05/17 [Last Taken Unknown] Benzonatate [Tessalon Perle] 100 mg PO TID PRN #15 capsule 03/05/17 [Last Taken Unknown] Levofloxacin [Levaquin] 500 mg PO DAILY #10 tab 03/05/17 [Last Taken Unknown] predniSONE [Prednisone] 2 tab PO DAILY 4 Days #8 tab 03/05/17 [Last Taken Unknown] Exam - Exam Vital Signs: Vital Signs - Last Taken Temp 36.8 C 02/20/17 21:00 Pulse 93 02/20/17 21:00 Resp 18 02/20/17 21:00 BP 111/52 02/20/17 21:00 Pulse Ox 96 02/20/17 21:00 Constitutional: Present: Alert, Oriented x3, Cooperative ENT Exam: Present: normal ENT inspection, hearing grossly normal Eye Exam: bilateral eye: normal inspection Respiratory: Present: lungs clear, normal breath sounds Cardiovascular/Chest: Present: regular rate, rhythm, no murmur Abdomen: Present: Normal bowel sounds, soft, nontender, nondistended Extremity: Present: normal inspection Skin Exam: Present: normal color, warm/dry, no cyanosis Neurologic: Present: no motor/sensory deficits, alert, oriented x 3, other - tearful Appearance: Present: appropriate appearance, appropriate insight Eye contact: Present: cooperative, good eye contact, normal speech Thoughts: Present: normal thought pattern, no apparent hallucination Diagnostic Studies: Abnormal Lab Results 02/20/17 Range/Units 13:56 Acetaminophen Less than 0.2 L (10.0-30.0) mcg/mL Laboratory Results WBC 6.3 K/mm3 (4.0-10.5) 02/20/17 10:14 RBC 4.97 M/mm3 (4.2-5.4) 02/20/17 10:14 Hgb 15.2 gm/dL (12.5-16.0) 02/20/17 10:14 Hct 44.9 % (37.0-47.0) 02/20/17 10:14 MCV 90.3 fl (78-100) 02/20/17 10:14 MCH 30.6 pg (27-31) 02/20/17 10:14 MCHC 33.9 g/dl (32-36) 02/20/17 10:14 RDW 12.7 % (11.5-14.0) 02/20/17 10:14 Plt Count 401 K/mm3 (150-450) 02/20/17 10:14 MPV 9.3 fl (6.0-9.5) 02/20/17 10:14 Immature Gran % (Auto) 0.20 % (0.001-0.429) 02/20/17 10:14 Immature Gran # (Auto) 0.01 K/mm3 (0.000-0.0310) 02/20/17 10:14 Neutrophils % 52.0 % (42-75.0) 02/20/17 10:14 Lymphocytes % 36.2 % (20-51) 02/20/17 10:14 Monocytes % 9.0 % (0.0-9) 02/20/17 10:14 Eosinophils % 2.1 % (0.0-3.0) 02/20/17 10:14 Basophils % 0.5 % (0.0-1.0) 02/20/17 10:14 Nucleated RBC % 0.0 k/mm3 (0-1) 02/20/17 10:14 Neutrophils # 3.3 K/mm3 (1.3-6.0) 02/20/17 10:14 Lymphocytes # 2.3 k/mm3 (1.5-3.5) 02/20/17 10:14 Monocytes # 0.6 k/mm3 (0.0-1.0) 02/20/17 10:14 Eosinophils # 0.1 k/mm3 (0.0-0.7) 02/20/17 10:14 Absolute Basophils 0.0 k/mm3 (0.0-0.1) 02/20/17 10:14 pCO2 37.5 mmHg (32.0-45.0) 02/20/17 09:59 pO2 73.0 mmHg (83.0-108.0) L 02/20/17 09:59 HCO3 23.1 mmol/L (21.0-28.0) 02/20/17 09:59 Total CO2 24.2 mmol/L (19.0-24.0) H 02/20/17 09:59 Base Excess -1.2 mmol/L (-2.0-3.0) 02/20/17 09:59 ABG pH 7.41 (7.35-7.45) 02/20/17 09:59 ABG O2 Sat (Measured) 94.9 % (94.0-98.0) 02/20/17 09:59 Sodium 141 mmol/L (132-142) 02/20/17 10:14 Plasma Sodium 142 mmol/L (130-142) 02/20/17 10:14 Potassium 3.7 mmol/L (3.4-4.6) 02/20/17 10:14 Chloride 102 mmol/L (97-106) 02/20/17 10:14 Carbon Dioxide 28.9 mmol/L (24-32.6) 02/20/17 10:14 Anion Gap 13.8 mmol/L (6.8-13.8) 02/20/17 10:14 BUN 18 mg/dL (3-23) 02/20/17 10:14 Creatinine 0.95 mg/dL (0.4-1.4) 02/20/17 10:14 Est GFR (Non-Af Amer) 65 mL/min (60-130) 02/20/17 10:14 BUN/Creatinine Ratio 18.9 (9.0-21.6) 02/20/17 10:14 Random Glucose 134 mg/dL (70-110) H 02/20/17 10:14 Calcium 9.2 mg/dL (7.9-10.9) 02/20/17 10:14 Calcium Adj for Albumin 8.6 mg/dL (8.4-10.2) 02/20/17 10:14 Total Bilirubin 0.4 mg/dL (0.0-1.1) 02/20/17 10:14 AST 36 U/L (0-48) 02/20/17 10:14 ALT 38 U/L (19-67) 02/20/17 10:14 Alkaline Phosphatase 124 U/L (50-170) 02/20/17 10:14 Total Protein 7.8 gm/dL (6.2-8.2) 02/20/17 10:14 Albumin 4.4 gm/dl (3.4-5.0) 02/20/17 10:14 Serum HCG, Qual Negative (NEGATIVE) 02/20/17 10:14 Urine Color Pale yellow 02/20/17 10:40 Urine Appearance Clear 02/20/17 10:40 Urine pH 6.0 pH (5.0-7.0) 02/20/17 10:40 Ur Specific [place] 1.010 SP.GR. (1.005-1.010) 02/20/17 10:40 Urine Protein Negative mg/dL (NEGATIVE) 02/20/17 10:40 Urine Glucose (UA) Negative mg/dL (NEGATIVE) 02/20/17 10:40 Urine Ketones Negative mg/dL (NEGATIVE) 02/20/17 10:40 Urine Blood Negative /ul (NEGATIVE) 02/20/17 10:40 Urine Nitrate Negative (NEGATIVE) 02/20/17 10:40 Urine Bilirubin Negative mg/dl (NEGATIVE) 02/20/17 10:40 Urine Urobilinogen Normal EU/dl (NORMAL) 02/20/17 10:40 Ur Leukocyte Esterase 25 /ul (NEGATIVE) H 02/20/17 10:40 Urine RBC None seen /hpf (0-5) 02/20/17 10:40 Urine WBC 5-10 /hpf (0-5) H 02/20/17 10:40 Ur Epithelial Cells 10-25 /hpf (0-5) H 02/20/17 10:40 Urine Bacteria 2+ (NONE) H 02/20/17 10:40 Urine Culture Comments Culture to follow 02/20/17 10:40 Salicylates 3.2 mg/dL (2.8-20.0) 02/20/17 10:14 Urine Opiates Screen Negative (NEGATIVE) 02/20/17 10:40 Acetaminophen Less than 0.2 mcg/mL (10.0-30.0) L 02/20/17 13:56 Barbiturate Screen Negative (NEGATIVE) 02/20/17 10:40 Ur Phencyclidine Scrn Negative (NEGATIVE) 02/20/17 10:40 Urine Amphetamine Positive (NEGATIVE) H 02/20/17 10:40 U Benzodiazepines Scrn Negative (NEGATIVE) 02/20/17 10:40 Urine Cocaine Screen Negative (NEGATIVE) 02/20/17 10:40 Urine Marijuana (THC) Positive (NEGATIVE) H 02/20/17 10:40 Ethyl Alcohol Less than 3.0 mg/dL (0.0-10.0) 02/20/17 10:14 Assessment/Plan - Narrative Narrative: Judith is a 51 yo female admitted for suicidal behavior and reported benzo overdose. It is unclear if she actually took anything as she is very alert which would not be expected with her reported benzo overdose. Her urine drug screen was also negative for benzos. At this time she appears medically stable. Will continue to monitor her for any evidence of GR[employer]ACKER depression. Will begin looking for inpatient psych. She would like to voluntarily seek commitment for treatment. - Assessment/Plan (1) Suicidal behavior Problem: Acute (2) Overdose Problem: Acute
[2017-02-21] MEDS: NORMAL SALINE 1,000 ML IV PRN (04:37)
[2017-02-21] MEDS ORDERED: KETOROLAC TROMETHAMINE 30 MG/ML VIAL IV ONE (12:48)
[2017-02-21 19:43] VITALS: BP 135/76
--- NOTE | 2017-02-21 22:18 | DS ---
Transfer Discharge Summary - Diagnosis(s)/Problems (1) Overdose Problem: Acute (2) Suicide attempt by other psychotropic drug overdose Problem: Acute (3) Migraine Problem: Chronic (4) Vertigo Problem: Chronic - Course Description of Stay: Pt was admitted on 02/20/17 due to intentional drug overdose on Clonazepam. She admitted to feeling depressed and the reason for overdose was to " end her life. " The urine drug screen was negative for Benzodiazepines but was positive for Amphetamines and Marijuana. All of the other lab. studies involving CBC & BMP were unremarkable.We did not have any Psychiatry coverage to evaluate her during the days she was admitted here and therefore, arrangements were made for her to be transferred in an inpatient Psych. Unit once medically cleared. Her V.S remained stable and she had a clear sensorium. Placement was found at the [facility] at their inpt psych. She was determined to be in a stable condition at the time of transfer. Procedures Performed: none - Results and Findings Results and Findings: Laboratory Results - last 24 hr 02/21/17 17:27 TSH 1.413 - Medications Medications: Active Medications Acetaminophen (Tylenol) 650 mg PO Q6H PRN PRN Reason: Mild pain (pain scale 1-3) Stop: 03/22/17 19:58 Last Admin: 02/20/17 20:22 Dose: 650 mg Discontinued Medications Sodium Chloride (Sodium Chloride 0.9%) 1,000 mls @ 999 mls/hr IV .Q1H1M ONE Stop: 02/20/17 10:55 Last Infusion: 02/20/17 11:15 Dose: Infused Sodium Chloride (Sodium Chloride 0.9%) 1,000 mls @ 125 mls/hr IV .Q8H PRN PRN Reason: HYDRATION Stop: 03/22/17 11:58 Last Infusion: 02/21/17 12:37 Dose: Infused Ketorolac Tromethamine (Toradol) 30 mg IV ONCE ONE Stop: 02/21/17 12:49 Last Admin: 02/21/17 12:59 Dose: 30 mg - Disposition Disposition: Other health care facility Condition: Good Discharge Date: 02/21/17 Discharge Time: 20:00
== END 2017-02-21 20:15 | disposition short-term general hospital (02) ==
LOC: ER 09:49 → MS 11:54 → INTOOBSV 11:54 → SCU 12:41
PROVIDERS: ADMIT Family Medicine; ATTEND Family Medicine
DX: T42.4X2A Poisoning by benzodiazepines, intentional self-harm, initial encounter (principal); R42 Dizziness and giddiness; G43.909 Migraine, unspecified, not intractable, without status migrainosus; Y92.9 Unspecified place or not applicable
CPT/HCPCS: 36415; 36600; 71046; 80053; 80307; 81001; 82803; 84443; 84703; 85025; 87040; 87086; 93005; 94762; 96374; 99285; G0378; G0480; G0481